=== PATIENT | male | born 1955 | race Caucasian/White ===

== ENCOUNTER 2020-09-07 14:36 | Inpatient (IN) | payer MEDICARE ==
[~2020-09-07] VITALS: Ht 175.3 cm; Wt 122.9 kg
[2020-09-07 14:49] VITALS: BP 169/87
[2020-09-07] MEDS ORDERED: STATIN (14:52)
[2020-09-07 15:06] LABS: URINE BILIRUBIN NEGATIVE (Negative); URINE BLOOD 3+ (Negative); URINE CLARITY CLEAR; URINE COLOR YELLOW; URINE GLUCOSE-RANDOM NEGATIVE (Negative); URINE KETONES NEGATIVE (Negative); URINE LEUKOCYTES-REFLEX NEGATIVE (Negative); URINE NITRITE-REFLEX NEGATIVE (Negative); URINE PROTEIN TRACE (Negative); URINE SPECIFIC GRAVITY >= 1.030 (1.005-1.030); URINE UROBILINOGEN 0.2 E.U./dl (0.2-1.0)
[2020-09-07 15:18] LABS: ABSOLUTE EOSINOPHILS 0.2 thou/uL (0.0-0.7); ABSOLUTE LYMPHOCYTES 1.5 thou/uL (0.8-5.3); ABSOLUTE MONOCYTES 0.6 thou/uL (0.0-1.2); ABSOLUTE NEUTROPHILS 3.2 thou/uL (1.6-8.1); BASOPHILS 0.8 %; EOSINOPHILS 2.9 %; HEMATOCRIT 41.8 % (42.0-52.0); HEMOGLOBIN 14.6 gm/dL (14.0-18.0); LYMPHOCYTES 26.9 %; MCH 29.7 pg (26.0-34.0); MCHC 34.9 g/dL (28.0-37.0); MCV 85.2 fL (80.0-100.0); MONOCYTES 11.4 %; MPV 7.2 fl. (7.2-11.1); NUCLEATED RBCS 0 /100WBC; PLATELET COUNT* 257 thou/uL (150-400); RBC 4.91 mil/uL (4.50-6.00); WBC 5.5 thou/uL (4.0-11.0)
[2020-09-07 15:21] LABS: CASTS None Seen /LPF (None Seen); CRYSTALS None Seen /LPF (None Seen); MUCUS 4-6 Moderate strn/LPF (None Seen); SQUAMOUS 4-10 Moderate /LPF (0-3); URINE RBC >20 Many /HPF (0-2)
[2020-09-07 15:22] LABS: BACTERIA-REFLEX None Seen /HPF (None Seen); URINE WBC-REFLEX 0-5 Rare /HPF (0-5)
[2020-09-07 15:24] LABS: CALCIUM 8.5 mg/dL (8.5-10.1); CREATININE 1.4 mg/dL (0.6-1.3); POTASSIUM 3.6 mmol/L (3.5-5.1)
[2020-09-07 15:29] LABS: ALBUMIN 3.3 g/dL (3.4-5.0); TOTAL PROTEIN 6.5 g/dL (6.4-8.2)
[2020-09-07 23:01] VITALS: BP 149/79
[2020-09-07 23:12] VITALS: BP 96/75
[2020-09-07] MEDS ORDERED: LIPITOR 20 MG T20 M1 PO (23:24)
[2020-09-08] VITALS (15 sets, daily range): BP systolic 123–155; BP diastolic 63–78
--- NOTE | 2020-09-08 11:46 | EKG ---
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 : 1955 Requested By: Juancarlos Davis Order Number: [id number] MD: Bipin Amaro Measurements Intervals [place] Rate: 68 P: [place]: QRS: -24 QRSD: 97 T: 76 QT: 409 QTc: 436 Interpretive Statements Atrial fibrillation Borderline left axis deviation RSR' in V1 or V2, right VCD or RVH No previous ECG available for comparison Electronically Signed On 09-08-2020 11:45:54 CDT by Bipin Amaro [email or web address] <ELECTRONICALLY SIGNED> By: Bipin Amaro MD, [facility] 09/08/20 1145 1509 1509 Bipin Amaro MD, [facility] /EPI
[2020-09-09] VITALS (15 sets, daily range): BP systolic 130–173; BP diastolic 70–89
[2020-09-09 04:49] LABS: CHOLESTEROL 137 mg/dL (<200); HDL CHOLESTEROL 31 mg/dL (>40); LDL CHOLESTEROL 87 mg/dL (<100); TC:HDL 4.4 Ratio (Not establshd); TRIGLYCERIDE 99 mg/dL (<150); VLDL 20 mg/dL (<40)
[2020-09-09 04:59] LABS: SERUM ASSESSMENT Clear
[2020-09-09] MEDS ORDERED: FLOMAX0.4 MG PO (08:18)
[2020-09-09] MEDS ORDERED: ELIQUIS5 MG PO (08:18)
--- NOTE | 2020-09-09 13:31 | EKG ---
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 : 1955 Requested By: Juancarlos Davis Order Number: [id number] Bebeto MD: Bipin Amaro Measurements Intervals [place] Rate: 39 P: IN: QRS: -3 QRSD: 92 T: 248 QT: 492 QTc: 397 Interpretive Statements Junctional rhythm Nonspecific repol abnormality, diffuse leads Compared to ECG 09/07/2020 15:09:32 Junctional rhythm now present Early repolarization now present Atrial fibrillation no longer present Electronically Signed On 09-09-2020 13:31:00 CDT by Bipin Amaro [email or web address] <ELECTRONICALLY SIGNED> By: Bipin Amaro MD, [facility] 09/09/20 1331 1602 1602 Bipin Amaro MD, [facility] /EPI
--- NOTE | 2020-09-09 13:38 | EKG ---
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 : 1955 Requested By: Bipin Amaro Order Number: [id number] Bebeto MD: Bipin Amaro Measurements Intervals [place] Rate: 62 P: 33 [place]: 198 QRS: -7 QRSD: 115 T: 47 QT: 422 QTc: 429 Interpretive Statements Sinus rhythm Nonspecific intraventricular conduction delay Minimal ST depression, lateral leads Compared to ECG 09/07/2020 16:02:02 ST (T wave) deviation now present Junctional rhythm no longer present Early repolarization no longer present Electronically Signed On 09-09-2020 13:38:36 CDT by Bipin Amaro [email or web address] <ELECTRONICALLY SIGNED> By: Bipin Amaro MD, [facility] 09/09/20 1338 1113 1113 Bipin Amaro MD, [facility] /EPI
--- NOTE | 2020-09-09 14:56 | 2DMMODE ---
[place] [address] 2 D/M-MODE ECHOCARDIOGRAM Name: KEENAN MARTINEZ Room: [address] IN [facility]#: [id number] Admission: 09/07/20 Attend Phys: Raleigh Lau Discharge: Date of : 51 Date of Service: 09/09/20 1455 Report #: [id number] THIS REPORT FOR: cc: Milind Conner MD, Bruce D. MD Liston, Michael J. MD [facility] ~ APPROVED REPORT Study performed: 09/09/2020 10:21:25 EXAM: Comprehensive 2D, Doppler, and color-flow Echocardiogram Patient Location: In-Patient Room #: 001 Status: routine BSA: 2.33 HR: 73 bpm BP: 130/70 mmHg Rhythm: NSR Other Information Study Quality: Good Indications Atrial Fibrillation 2D Dimensions IVSd: 11.25 (7-11mm) LVOT Diam: 20.62 (18-24mm) LVDd: 55.66 mm PWd: 10.62 (7-11mm) Ascending Ao: 32.08 (22-36mm) LVDs: 40.04 (25-40mm) Aortic Root: 29.66 mm Volumes Left Atrial Volume (Systole) LA ESV Index: 34.00 mL/m2 Aortic Valve AoV Peak Earnest.: 1.92 m/s AO Peak Gr.: 14.73 mmHg LVOT Max P.02 mmHg AO Mean Gr.: 8.60 mmHg LVOT Mean P.74 mmHg LVOT Max V: 1.23 m/s AO V2 VTI: 41.09 cm LVOT Mean V: 0.75 m/s LAKISHA (VTI): 2.19 cm2 LVOT V1 VTI: 27.00 [place] [address] 2 D/M-MODE ECHOCARDIOGRAM Name: KEENAN MARTINEZ Room: [address]#: [id number] Admission: 09/07/20 Attend Phys: Raleigh Lau Discharge: Date of : 51 Date of Service: 09/09/20 1455 Report #: [id number] Mitral Valve E/A Ratio: 1.44 MV Decel. Time: 111.88 ms MV E Max Earnest.: 1.02 m/s MV PHT: 32.45 ms MVA (PHT): 6.78 cm2 TDI E/Lateral E': 8.50 E/Medial E': 9.27 Medial E' Earnest.: 0.11 m/s Lateral E' Earnest.: 0.12 m/s Pulmonary Valve PV Peak Earnest.: 1.73 m/s PV Peak Gr.: 12.01 mmHg Tricuspid Valve RAP Estimate: 5.00 mmHg TR Peak Gr.: 37.80 mmHg RVSP: 42.00 mmHg PA Pressure: 42.00 mmHg Left Ventricle The left ventricle is normal size. There is normal LV segmental wall motion. There is normal left ventricular wall thickness. Left ventricular systolic function is normal. LVEF is 55-60%. Transmitral Doppler flow pattern suggests impaired LV relaxation. Right Ventricle The right ventricle is normal size. The right ventricular systolic function is normal. Atria Left atrium is mildly dilated. Right atrium is dilated. Aortic Valve Mild aortic valve sclerosis. Trace aortic regurgitation. There is no aortic valvular stenosis. Mitral Valve The mitral valve is normal in structure. Mild mitral regurgitation. No evidence of mitral valve stenosis. Tricuspid Valve The tricuspid valve is normal in structure. Mild tricuspid regurgitation. Moderate pulmonary hypertension. The RVSP is 40-[place] [address] 2 D/M-MODE ECHOCARDIOGRAM Name: KEENAN MARTINEZ Room: [address]#: [id number] Admission: 09/07/20 Attend Phys: Raleigh Lau Discharge: Date of : 51 Date of Service: 09/09/20 1455 Report #: [id number] Pulmonic Valve The pulmonary valve is normal in structure. There is no pulmonic valvular regurgitation. Great Vessels The aortic root is normal in size. IVC is normal in size and collapses >50% with inspiration. Pericardium There is no pericardial effusion. <Conclusion> The left ventricle is normal size. There is normal left ventricular wall thickness. Left ventricular systolic function is normal. LVEF is 55-60%. Transmitral Doppler flow pattern suggests impaired LV relaxation. Left atrium is mildly dilated. Right atrium is dilated. Mild aortic valve sclerosis. Trace aortic regurgitation. Mild mitral regurgitation. Mild tricuspid regurgitation. Moderate pulmonary hypertension. The RVSP is 40-45 mmHg. IVC is normal in size and collapses >50% with inspiration. <ELECTRONICALLY SIGNED> By: Doe Jeffries MD, FACC 09/09/20 1455 1455 1455 Doe Jeffries MD, FACC /INF
--- NOTE | 2020-09-09 16:38 | EKG ---
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1955 Requested By: Raleigh Lau Order Number: [id number] Bebeto MD: Doe Jeffries Measurements Intervals [place] Rate: 55 P: 9 MT: 205 QRS: -24 QRSD: 98 T: -11 QT: 428 QTc: 410 Interpretive Statements Sinus rhythm Borderline left axis deviation RSR' in V1 or V2, probably normal variant Borderline T abnormalities, inferior leads Compared to ECG 09/07/2020 16:02:02 RSR' in V1 or V2 now present T-wave abnormality now present Junctional rhythm no longer present Early repolarization no longer present Electronically Signed On 09-09-2020 16:38:30 CDT by Doe Jeffries [email or web address] <ELECTRONICALLY SIGNED> By: Doe Jeffries MD, [facility] 09/09/20 1638 2314 2314 Doe Jeffries MD, [facility] /EPI
--- NOTE | 2020-09-10 12:25 | CON ---
[address] [address] CONSULTATION Name: KEENAN MARTINEZ Room: [address]R.#: [id number] Admission: 09/07/20 Attend Phys: Noah Clark Discharge: 09/09/20 Date of : 51 Report #: [id number] THIS REPORT FOR: cc: Milind Conner MD, Bruce D. MD Blick, David R. MD [facility] ~ DOC #: [id number] cc: MD Bipin Bey MD [facility] DATE OF CONSULTATION: 09/08/2020 CARDIOLOGY CONSULTATION HISTORY OF PRESENT ILLNESS: The patient is a 64-year-old single white male who I was asked to see in the hospital today after he was noted to be in atrial fibrillation. The patient has no previous history of heart disease. He notes about 15 years ago, he had a kidney stone. He was doing well until yesterday afternoon. He felt right flank pain. He thought he was having a kidney stone. He drove himself to the Emergency Room here at [facility]. He was seen in the Emergency Room. He was treated for the kidney stone. After he was in the Emergency Room for a couple hours, he was then noted to be in atrial fibrillation on the monitor. He then developed slow rate of atrial fibrillation down into the 30s. He eventually converted to sinus bradycardia. He has had no fibrillation since that time. The patient denied a previous history of palpitations, chest pain, exertional dyspnea, peripheral edema. He has had no recent fever. Denied any blood in his urine. He has had no further flank pain. PAST MEDICAL HISTORY: He has been treated for prostate cancer in the past. He has had carpal tunnel surgery, tonsillectomy. No history of hypertension, diabetes. Does have a history of hyperlipidemia. MEDICATIONS: His only medication includes Lipitor. ALLERGIES: He has no known drug allergies. FAMILY HISTORY: His mother had coronary stents and bypass surgery. SOCIAL HISTORY: He is , lives with son on several acres. 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 No smoking, alcohol abuse. REVIEW OF SYSTEMS: No history of stroke, sleep apnea, asthma, liver disease, prostate cancer in the past. He wears glasses. No psychiatric illness[place] [address] CONSULTATION Name: KEENAN MARTINEZ Room: [address]#: [id number] Admission: 09/07/20 Attend Phys: Noah Clark Discharge: 09/09/20 Date of : 51 Report #: [id number] PHYSICAL EXAMINATION: GENERAL: Revealed a middle-aged male, lying in bed, appeared in no distress. VITAL SIGNS: He had a blood pressure of 110/60, pulse is currently 60, he is afebrile. HEENT: He was anicteric. Conjunctivae pink. Mucosa is moist. NECK: Veins not distended. No carotid bruits. Neck is supple. CHEST: Clear to auscultation. CARDIAC: Regular rate and rhythm. No murmur. ABDOMEN: Soft, nontender. EXTREMITIES: Had no edema. Dorsalis pedis pulse 3+ bilaterally. SKIN: Cool and dry. NEUROLOGIC: Nonfocal. IMAGING DATA: His ECG that was initially taken in the Emergency Room yesterday showed atrial fibrillation with a controlled response, nonspecific ST segment changes. Followup ECG showed sinus bradycardia, nonspecific T-wave changes. On his workup in the Emergency Room yesterday, he had a chest x-ray that showed normal heart size, clear lung mathew. LABORATORY DATA: Potassium 3.6, creatinine is 1.4, glucose is 175. His troponins are all less than 0.06. T4 is 0.98. White blood cell count 5.5, hemoglobin 14.6. His COVID antigen stat test is negative. Urinalysis had blood, many RBCs. IMPRESSION AND RECOMMENDATIONS: 1. Paroxysmal atrial fibrillation. I would recommend anticoagulation. If recurrent, I would consider antiarrhythmic therapy. 2. Kidney stone. 3. Hyperlipidemia. The patient is on a statin drug. 4. History of prostate cancer. Bipin Amaro MD [facility] SHANNON/ANAIS <ELECTRONICALLY SIGNED> By: Bipin Amaro MD, [facility] 09/10/20 1225 0801 [id number] Amaro MD, [facility] /nt
== END 2020-09-09 14:55 | disposition home or self-care (01) | DRG 310 ==
LOC: M.ERS 14:36 → M.TBA-ER 16:35 → M.ERS 16:35 → M.2W 19:17 → M.TBA-ER 19:17 → M.ICU 20:11
PROVIDERS: Internal Medicine Cardiovascular Disease; Physician Assistant; ADMIT Internal Medicine; ATTEND Internal Medicine
DX: I48.0 Paroxysmal atrial fibrillation (principal); N20.0 Calculus of kidney; E78.5 Hyperlipidemia, unspecified; I49.5 Sick sinus syndrome; Z20.822 Contact with and (suspected) exposure to COVID-19; Z85.46 Personal history of malignant neoplasm of prostate; Z79.899 Other long term (current) drug therapy